=== PATIENT | female | born 2000 | race Caucasian/White ===

== ENCOUNTER 2021-12-30 08:52 | Emergency (ER) | payer MEDICAID ==
[~2021-12-30] VITALS: Ht 160 cm; Wt 59.0 kg
[2021-12-30 09:02] VITALS: BP 112/50
--- NOTE | 2021-12-30 09:05 | NUR ---
AMBULATED TO BED 6
--- NOTE | 2021-12-30 09:57 | NUR ---
Dr. Mercado evaluating patient at bedside.
--- NOTE | 2021-12-30 10:00 | NUR ---
21 y/o female bib self with c/o pelvic pain x 3 days. Patient reports 6/10 pain to pelvic area. Patient also reports vaginal bleeding when wiping, started yesterday. LMP 11/12/21. [id number] Patients first OB appointment is on 01/17/22. Medical History: Heart Murmur ALLERGY: IBUPROFEN
--- NOTE | 2021-12-30 10:21 | NUR ---
Ultrasound at bedside.
--- NOTE | 2021-12-30 10:28 | NUR ---
PER ERMD, HOLD OFF ON THE IV PLACEMENT
[2021-12-30 10:47] LABS: BASOPHILS % (AUTO) 0.5 % (0.0-2.0); EOSINOPHILS # (AUTO) 0.1 K/uL (0-0.4); EOSINOPHILS % (AUTO) 0.8 % (0.0-4.0); HEMATOCRIT 35.7 % (36-48); HEMOGLOBIN 11.6 g/dL (12.0-16.0); LYMPHOCYTES # (AUTO) 1.9 K/uL (2.5-16.5); LYMPHOCYTES % (AUTO) 23.8 % (20.5-51.1); MEAN CORPUSCULAR HEMOGLOBIN 29 pg (27-31); MEAN CORPUSCULAR HGB CONC 33 g/dL (33-37); MEAN CORPUSCULAR VOLUME 87.8 fL (80-94); MONOCYTES # (AUTO) 0.5 K/uL (0.8-1.0); MONOCYTES % (AUTO) 6.3 % (1.7-9.3); NEUTROPHILS # (AUTO) 5.6 K/uL (1.8-7.7); NEUTROPHILS % (AUTO) 68.6 % (42.2-75.2); PLATELET COUNT (AUTO) 259 K/uL (140-450); RED BLOOD CELL COUNT(AUTO) 4.07 MIL/uL (4.20-5.40); RED CELL DISTRIBUTION WIDTH 15.5 % (11.6-13.7); WHITE BLOOD COUNT (AUTO) 8.1 K/uL (4.5-11.0)
[2021-12-30 11:18] LABS: ALBUMIN 3.5 g/dL (3.4-5.0); ANION GAP 11.7 (8-16); CARBON DIOXIDE 25.2 mmol/L (21-32); CREATININE 0.4 mg/dL (0.6-1.3); POTASSIUM 4.9 mmol/L (3.5-5.1); TOTAL BILIRUBIN 0.3 mg/dL (0.0-1.0)
[2021-12-30 11:45] LABS: APPEARANCE,URINE CLEAR (CLEAR); BILIRUBIN,URINE NEGATIVE (NEGATIVE); BLOOD, URINE NEGATIVE (NEGATIVE); COLOR,URINE YELLOW (YELLOW); LEUKOCYTE ESTERASE ,URINE NEGATIVE (NEGATIVE); NITRITE, URINE NEGATIVE (NEGATIVE); UGLUCOSE NEGATIVE (NEGATIVE)
--- NOTE | 2021-12-30 12:45 | NUR ---
Patient is laying in bed, respirations even and unlabored. All needs met by staff.
[2021-12-30] MEDS ORDERED: LOTC TP (14:07)
[2021-12-30 14:37] VITALS: BP 101/53
--- NOTE | 2021-12-30 14:37 | NUR ---
Patient discharged with v/s stable. Written and verbal after care instructions given. Patient alert, oriented and verbalized understanding of instructions. Ambulatory with steady gait. All questions addressed prior to discharge. ID band removed. Patient advised to follow up with PMD. Rx of Clotrimazole given. Opportunity to ask questions provided and answered.
--- NOTE | 2021-12-30 14:40 | NUR ---
The patient's care was reviewed and supervised by Chana Mccray RN.
== END 2021-12-30 14:37 | disposition home or self-care (01) ==
LOC: MED 08:52
DX: O20.0 Threatened abortion (principal); I25.10 Atherosclerotic heart disease of native coronary artery without angina pectoris; Z3A.01 Less than 8 weeks gestation of pregnancy; Z79.1 Long term (current) use of non-steroidal anti-inflammatories (NSAID)
CPT/HCPCS: 36415; 76705; 76801; 80053; 81003; 81025; 83690; 84702; 85025; 99285; Q0092

== ENCOUNTER 2022-01-06 09:33 | Emergency (ER) | payer MEDICAID ==
[~2022-01-06] VITALS: Ht 160 cm; Wt 58.1 kg
[~2022-01-06 09:33] MED LIST: LOTC TP
[2022-01-06 10:08] VITALS: BP 99/52
--- NOTE | 2022-01-06 12:08 | NUR ---
DR. HENNING BEDSIDE TO ASSESS PT.
[2022-01-06] MEDS ORDERED: PYRIDOXINE 50 MG TAB PO STA (12:24)
[2022-01-06] MEDS ORDERED: CRUSHER, PILL MC ONE (12:29)
[2022-01-06 14:12] LABS: BASOPHILS % (AUTO) 0.2 % (0.0-2.0); EOSINOPHILS % (AUTO) 0.5 % (0.0-4.0); HEMATOCRIT 34.5 % (36-48); HEMOGLOBIN 11.2 g/dL (12.0-16.0); LYMPHOCYTES % (AUTO) 22.4 % (20.5-51.1); MEAN CORPUSCULAR HEMOGLOBIN 28 pg (27-31); MEAN CORPUSCULAR HGB CONC 33 g/dL (33-37); MEAN CORPUSCULAR VOLUME 85.6 fL (80-94); MONOCYTES # (AUTO) 0.6 K/uL (0.8-1.0); MONOCYTES % (AUTO) 6.3 % (1.7-9.3); NEUTROPHILS # (AUTO) 6.4 K/uL (1.8-7.7); NEUTROPHILS % (AUTO) 70.6 % (42.2-75.2); PLATELET COUNT (AUTO) 272 K/uL (140-450); RED BLOOD CELL COUNT(AUTO) 4.03 MIL/uL (4.20-5.40); RED CELL DISTRIBUTION WIDTH 15.6 % (11.6-13.7)
[2022-01-06 14:18] LABS: ALBUMIN 3.5 g/dL (3.4-5.0); ANION GAP 13.1 (8-16); CARBON DIOXIDE 24.1 mmol/L (21-32); CREATININE 0.4 mg/dL (0.6-1.3); POTASSIUM 4.2 mmol/L (3.5-5.1); TOTAL BILIRUBIN 0.2 mg/dL (0.0-1.0)
[2022-01-06] MEDS ORDERED: PYRI-218 PO (14:42)
[2022-01-06] MEDS ORDERED: DOXY25TA61 PO (14:42)
[2022-01-06 15:18] VITALS: BP 95/65
== END 2022-01-06 15:18 | disposition home or self-care (01) ==
LOC: MED 09:33
DX: O21.8 Other vomiting complicating pregnancy (principal); O26.891 Other specified pregnancy related conditions, first trimester; R10.9 Unspecified abdominal pain; Z3A.01 Less than 8 weeks gestation of pregnancy; Z79.899 Other long term (current) drug therapy; Z88.6 Allergy status to analgesic agent
CPT/HCPCS: 36415; 80053; 83690; 85025; 99283

== ENCOUNTER 2022-02-16 10:42 | Emergency (ER) | payer MEDICAID ==
[~2022-02-16] VITALS: Ht 160 cm; Wt 58.5 kg
[~2022-02-16 10:42] MED LIST changes: +DOXY25TA61 PO; +PYRI-218 PO
[2022-02-16 10:54] VITALS: BP 97/52
--- NOTE | 2022-02-16 11:09 | NUR ---
21/F WALKED IN C/O RLQ PAIN ONSET 2 DAYS. DENIES FALL OR TRAUMA. PT STATES BEING 13 WKS 5 DAYS . DENIES NAUSEA OR VOMITING. VITALS STABLE, AAO4, AMBULATORY, URINE COLLECTED. PMH: HEART MURMER
[2022-02-16] MEDS ORDERED: ACETAMINOPHEN 100 ML IV PRN (11:45)
[2022-02-16 12:51] LABS: BASOPHILS % (AUTO) 0.4 % (0.0-2.0); EOSINOPHILS # (AUTO) 0.1 K/uL (0-0.4); EOSINOPHILS % (AUTO) 0.7 % (0.0-4.0); HEMATOCRIT 34.2 % (36-48); HEMOGLOBIN 11.5 g/dL (12.0-16.0); LYMPHOCYTES % (AUTO) 21.1 % (20.5-51.1); MEAN CORPUSCULAR HEMOGLOBIN 29 pg (27-31); MEAN CORPUSCULAR HGB CONC 34 g/dL (33-37); MONOCYTES # (AUTO) 0.6 K/uL (0.8-1.0); MONOCYTES % (AUTO) 6.5 % (1.7-9.3); NEUTROPHILS # (AUTO) 6.8 K/uL (1.8-7.7); NEUTROPHILS % (AUTO) 71.3 % (42.2-75.2); PLATELET COUNT (AUTO) 255 K/uL (140-450); RED BLOOD CELL COUNT(AUTO) 3.93 MIL/uL (4.20-5.40); WHITE BLOOD COUNT (AUTO) 9.5 K/uL (4.5-11.0)
[2022-02-16 13:03] LABS: ALBUMIN 2.8 g/dL (3.4-5.0); ANION GAP 10.1 (8-16); CARBON DIOXIDE 25.7 mmol/L (21-32); CREATININE 0.5 mg/dL (0.6-1.3); POTASSIUM 3.8 mmol/L (3.5-5.1); TOTAL BILIRUBIN 0.2 mg/dL (0.0-1.0)
[2022-02-16 13:04] LABS: APPEARANCE,URINE HAZY (CLEAR); BILIRUBIN,URINE NEGATIVE (NEGATIVE); BLOOD, URINE NEGATIVE (NEGATIVE); COLOR,URINE YELLOW (YELLOW); LEUKOCYTE ESTERASE ,URINE TRACE (NEGATIVE); NITRITE, URINE NEGATIVE (NEGATIVE); UGLUCOSE NEGATIVE (NEGATIVE)
[2022-02-16 13:13] LABS: RBC,URINE NONE SEEN /HPF (0-5); YEAST,URINE Few /HPF (None Seen)
--- NOTE | 2022-02-16 13:52 | NUR ---
PT CALM AND RESTING
--- NOTE | 2022-02-16 15:50 | NUR ---
PT WENT TO CT
--- NOTE | 2022-02-16 16:05 | NUR ---
PT BACK FROM CT
[2022-02-16 16:14] VITALS: BP 105/63
[2022-02-16] MEDS ORDERED: ACET-9520 PO (16:52)
[2022-02-16] MEDS ORDERED: NITR100C7 PO (16:52)
--- NOTE | 2022-02-16 17:00 | NUR ---
Patient discharged with v/s stable. Written and verbal after care instructions given and explained. Patient alert, oriented and verbalized understanding of instructions. Ambulatory with steady gait. All questions addressed prior to discharge. ID band removed. Patient advised to follow up with PMD. Patient educated on indication of medication including possible reaction and side effects. Opportunity to ask questions provided and answered.
== END 2022-02-16 17:00 | disposition home or self-care (01) ==
LOC: MED 10:42
DX: O26.891 Other specified pregnancy related conditions, first trimester (principal); O21.8 Other vomiting complicating pregnancy; R10.9 Unspecified abdominal pain; R50.9 Fever, unspecified; Z3A.13 13 weeks gestation of pregnancy; Z88.6 Allergy status to analgesic agent; Z79.899 Other long term (current) drug therapy
CPT/HCPCS: 36415; 74176; 76705; 76801; 80053; 81001; 81025; 83690; 85025; 87086; 93005; 99285; Q0092

== ENCOUNTER 2022-03-11 11:12 | Emergency (ER) | payer MEDICAID ==
[~2022-03-11] VITALS: Ht 160 cm; Wt 58.1 kg
[~2022-03-11 11:12] MED LIST changes: +ACET-9520 PO; +NITR100C7 PO
[2022-03-11 11:24] VITALS: BP 103/61
--- NOTE | 2022-03-11 11:32 | NUR ---
21/F WALKED IN C/O LOW ABD PAIN RADIATING TO LOW BACK ONSET 1 WK. DENIES FALL OR TRAUMA. PT WAS SEEN TODAY AT HER OBGYN, SNEHA SCHAEFER MD, AND WAS TOLD NO TONE DETECTED. PT REPORTS 17 WKS . PT HX ECTOPIC IN THE PAST. PT WAS ADVISED BY OBGYN TO BE EVALUATED IN THE ER. PT REPORTS 7/10 CONSTANT PAIN. AAO4, AMBULATORY, VITALS STABLE. URINE COLLECTE AND SENT TO BIN PMH: HEART MURMUR, ECTOPIC .
--- NOTE | 2022-03-11 11:32 | NUR ---
PT AMBULATED TO LOBBY
--- NOTE | 2022-03-11 12:09 | NUR ---
Cheikh kumar in [facility] - 03/11/22 at 1210 by CHAPIS Spoke with L&D regarding FTH; RN will come down to perform.
--- NOTE | 2022-03-11 12:10 | NUR ---
Difficulty obtaining heart tones. Spoke with L&D RN for assistance; will come down to perform.
--- NOTE | 2022-03-11 12:32 | NUR ---
L&D nurse assessing heart tones in triage room.
--- NOTE | 2022-03-11 12:34 | NUR ---
Per Sis [employer]itt&Carl RN; heart tone 161bpm suprapubic region
[2022-03-11 14:07] LABS: APPEARANCE,URINE CLEAR (CLEAR); BILIRUBIN,URINE NEGATIVE (NEGATIVE); BLOOD, URINE NEGATIVE (NEGATIVE); COLOR,URINE YELLOW (YELLOW); LEUKOCYTE ESTERASE ,URINE 1+ (NEGATIVE); NITRITE, URINE NEGATIVE (NEGATIVE); PH,URINE 5.5 (5.0-9.0); UGLUCOSE NEGATIVE (NEGATIVE)
[2022-03-11 14:43] LABS: RBC,URINE 0-5 /HPF (0-5)
[2022-03-11 14:44] LABS: OTHER CASTS, URINE None Seen /LPF (None Seen)
[2022-03-11] MEDS ORDERED: NITR100C7 PO (15:02)
[2022-03-11 15:10] VITALS: BP 114/63
[2022-03-15] MEDS ORDERED: CEPH-588 PO (10:31)
--- NOTE | 2022-03-15 11:58 | NUR ---
RECEIVED POSITIVE URINE CULTURE. FORM GIVEN TO DR TORRES. BRIAN SEND RX OF CEPHALEXIN TO PTS [facility]ARM[facility]. PT CALLED AND NOTIFIED.
== END 2022-03-11 15:10 | disposition home or self-care (01) ==
LOC: MED 11:12
DX: O23.42 Unspecified infection of urinary tract in pregnancy, second trimester (principal); N39.0 Urinary tract infection, site not specified; I25.10 Atherosclerotic heart disease of native coronary artery without angina pectoris; Z3A.17 17 weeks gestation of pregnancy
CPT/HCPCS: 81001; 81025; 87086; 99283